=== PATIENT | male | born 1950 | race Caucasian/White ===

== ENCOUNTER 2018-04-26 09:53 | Emergency (ER) | payer MEDICARE, MEDICAID ==
[~2018-04-26] VITALS: Ht 180.3 cm; Wt 70.0 kg
[~2018-04-26 09:53] MED LIST: SYNT75TA PO
[2018-04-26 09:58] VITALS: BP 138/78; PULSE 100; RESP 16; TEMP 98.6; O2SAT 98
[2018-04-26] MEDS ORDERED: LEVO75TA3 PO (10:03)
[2018-04-26] MEDS ORDERED: PERC10TA27 PO (10:03)
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
[2018-04-26] MEDS ORDERED: KETOROLAC TROMETHAMINE 60 MG/2 ML (IM) VIAL IM ONE (10:30)
== END 2018-04-26 10:53 | disposition left against medical advice (07) ==
LOC: NEPD 09:53
DX: S05.12XA Contusion of eyeball and orbital tissues, left eye, initial encounter (principal); F17.210 Nicotine dependence, cigarettes, uncomplicated; Y04.2XXA Assault by strike against or bumped into by another person, initial encounter
CPT/HCPCS: 96372; 99283; J1885